=== PATIENT | male | born 1975 | race Caucasian/White ===

== ENCOUNTER 2017-01-31 14:17 | Emergency (ER) | payer SELFPAY ==
[2017-01-31] MEDS ORDERED: DIPHTH,PERTUSS(ACELL),TET VAC 0.5 ML VIAL IM ONE ×2 (14:37→14:51)
--- NOTE | 2017-01-31 14:42 | ERNOTE ---
Medical Problem HPI - Narrative Date of Service: 01/31/17 - General Chief Complaint: Laceration Time Seen by Provider: 01/31/17 14:30 Source: patient, family Exam Limitations: no limitations - Immun/Allergies/Home Medications Immunizations: IMMUNIZATION HX Immunizations Up to Date Yes History of Influenza Vaccine No Hx Pneumococcal Vaccination No Allergies/Adverse Reactions: Allergies No Known Allergies Allergy (Verified 01/31/17 14:36) Home Medications: HOME MEDICATIONS NK [No Home Medication] 01/31/17 [Last Taken Unknown] - History of Present History Narrative: Just before coming to the [facility] ER by private vehicle, he cut himself accidentally at home on some metal sheeting on a door opening to the barn. Moves fingers ok, sensation intact. Timing: constant Modifying Factors - (Improves): Present: rest Modifying Factors - (Worsens): Present: movement Review of Systems - Review of Systems Constitutional: Present: no symptoms reported EYE: Present: no symptoms reported ENT: Present: no symptoms reported Respiratory: Present: no symptoms reported Cardiology: Present: no symptoms reported Gastrointestinal/Abdominal: Present: no symptoms reported Genitourinary: Present: no symptoms reported Musculoskeletal: Present: no symptoms reported Skin: Present: See HPI Neurological: Present: no symptoms reported Endocrine: Present: no symptoms reported Hematologic/Lymphatic: Present: no symptoms reported Psych: Present: no symptoms reported All Other Systems: All systems neg except as marked - Patient's Past Medical History Patient History - Medical: No pertinent hx Patient History - Cardiac/Respiratory: No pertinent hx Patient History - Cancer: No Hx of Cancer Patient History - Surgical Procedures: No surgical history Patient History - Other: None - Social History Abuse History: No History of abuse Psych History: No pertinent hx Alcohol Use: none Drug Use: none - Immunizations Immunizations Up to Date: Yes Hx Pneumococcal Vaccination: No History of Influenza Vaccine: No Physical Exam - Physical Exam General Appearance: Present: wd/wn, alert, no apparent distress Eye Exam: Normal inspection: bilateral, PERRL: bilateral, EOMI: bilateral Ears, Nose, Throat: Present: normal ENT inspection Neck: Present: normal inspection Respiratory: Present: no respiratory distress Cardiovascular/Chest: Present: regular rate, rhythm Extremity Exam: Present: normal except - - laceration on dorsum of left hand Neurological Exam: Present: alert, oriented, normal mood/affect, no motor/ sensory deficits Skin Exam: Present: normal color, warm/dry ED Progress - Vital Signs Patient's Vital Signs:: I have reviewed the patient's vital signs. Vital Signs: Vital Signs 01/31/17 14:29 Temperature 37 C Pulse Rate 83 Respiratory 14 Rate Blood Pressure 131/88 - Progress/Reassessment Chief Complaint: Laceration Procedures Left Dorsal Hand Anesthesia: 1% Lidocaine I & D Prep: sterile drapes applied Wound's Depth/Shape: into subcutaneous, linear Wound Explored: clean, to base Wound Intervention: irrigated w/saline Distal NVT: neuro/vasc intact, no tendon injury Wound Repaired With: sutures Suture Size/Type: 3-0, nylon Number of Sutures: 7 Layer Closure: Simple Wound Dressing: sterile dressing applied Departure - Departure Clinical Impression: Laceration Disposition: Home self-care Condition: Good Instructions: Laceration Care, Adult, [id number] Additional Instructions: Keep the dressing clean, dry, intact and protected till you see your doctor. See your doctor in 2-3 days. Sutures out in 14 days. Referrals: Stephane Guzman MD [Primary Care Provider] -
[2017-01-31] MEDS ORDERED: LIDOCAINE HCL/EPINEPHRINE 30 ML VIAL IJ ONE (14:43)
--- OUTSIDE RECORDS SUMMARY | 2017-01-31 14:44 | XMS REPORT | Continuity of Care Document ---
:1975 Author Organization [facility] ([facility]) Address [address] [place] [address] Phone [phone] Care Team Providers Name Role Phone Unavailable Primary Care Provider Unavailable Source Comments This disclosure is being made pursuant to the Care Everywhere program, applicable federal and state laws, and may not contain all informaitonavailable regarding this patient.[facility] ([facility]) Active Allergies and Adverse Reactions Not on File Current Medications Not on file Active Problems Not on file Social History Tobacco Use Types Packs/Day Years Used Date Never Assessed Plan of Care Health Maintenance Due Date Last Done Comments Hepatitis B Vaccine (1 of 3 - Primary Series) 1975 Tdap Vaccine 1986 Lipid Disorder Screening 1993 MMR Vaccine 1993 Td Vaccine 1993 Influenza Vaccine: Seasonal (#1) 05/26/2016 Results from Last 3 Months Not on file
[2017-01-31 16:16] VITALS: BP 126/73
== END 2017-01-31 16:15 | disposition home or self-care (01) ==
LOC: ER 14:17
PROC: 0JQK0ZZ Repair Left Hand Subcutaneous Tissue and Fascia, Open Approach (ICD-10-PCS; principal; 2017-01-31)
DX: S61.412A Laceration without foreign body of left hand, initial encounter (principal); W45.8XXA Other foreign body or object entering through skin, initial encounter; Y92.71 Barn as the place of occurrence of the external cause; Z23 Encounter for immunization